=== PATIENT | male | born 1955 | race Caucasian/White ===

== ENCOUNTER → 2019-12-06 17:58 | Outpatient (BNVA) | payer MEDICARE, MEDICAID, SELFPAY | PROVIDERS: Visit Provider Family Medicine | DX: E11.9 Type 2 diabetes mellitus without complications (principal); J41.0 Simple chronic bronchitis; F20.9 Schizophrenia, unspecified; F17.200 Nicotine dependence, unspecified, uncomplicated; Z13.220 Encounter for screening for lipoid disorders; Z13.6 Encounter for screening for cardiovascular disorders | CPT/HCPCS: 80053; 80061; 83036 ==

== ENCOUNTER → 2020-11-06 14:15 | Outpatient (BNVA) | payer MEDICARE, MEDICAID, SELFPAY ==
[2020-02-26 09:22] VITALS: BP 159/86; BMI 34.1
== END ==
PROVIDERS: PCP Family Medicine; Visit Provider Family Medicine
DX: R32 Unspecified urinary incontinence (principal); E11.9 Type 2 diabetes mellitus without complications; N30.90 Cystitis, unspecified without hematuria; Z79.899 Other long term (current) drug therapy; Z13.220 Encounter for screening for lipoid disorders; Z13.6 Encounter for screening for cardiovascular disorders
CPT/HCPCS: 80053; 80061; 80156; 81000; 83036

== ENCOUNTER → 2021-09-11 09:53 | Outpatient (BNVA) | payer MEDICARE, MEDICAID, SELFPAY ==
[2020-11-25 14:33] VITALS: BP 145/78; BMI 30.5
== END ==
PROVIDERS: PCP Family Medicine; Visit Provider Family Medicine
DX: E78.1 Pure hyperglyceridemia (principal); E11.9 Type 2 diabetes mellitus without complications; I10 Essential (primary) hypertension; J44.9 Chronic obstructive pulmonary disease, unspecified
CPT/HCPCS: 80053; 80061; 83036; 85025

== ENCOUNTER → 2021-12-10 13:19 | Outpatient (BNVA) | payer MEDICARE, MEDICAID, SELFPAY ==
[2021-11-14 15:39] VITALS: BP 113/72; BMI 30.8
== END ==
PROVIDERS: PCP Family Medicine; Visit Provider Family Medicine
DX: E11.9 Type 2 diabetes mellitus without complications (principal); Z51.81 Encounter for therapeutic drug level monitoring
CPT/HCPCS: 80156; 83036

== ENCOUNTER → 2021-12-24 10:44 | Outpatient (BNVA) | payer MEDICARE, MEDICAID, SELFPAY ==
[2021-11-14 15:39] VITALS: BP 113/72; BMI 30.8
== END ==
PROVIDERS: PCP Family Medicine; Visit Provider Family Medicine
DX: E11.9 Type 2 diabetes mellitus without complications (principal)
CPT/HCPCS: 82962